=== PATIENT | female | born 1965 | race African-American/Black ===

== ENCOUNTER → 2019-02-11 | Emergency (ER) | payer MEDICAID ==
[~2019-02-11] VITALS: Ht 165.1 cm; Wt 57.2 kg
[~2019-02-11] MED LIST: CEPHALEXIN500 M1 ORAL; NKM
[2019-02-11 14:02] VITALS: BP 122/91
--- NOTE | 2019-02-11 14:53 | Emergency Room Report ---
History of Present Illness General Chief Complaint: Female Urogenital Problems Source: Patient Present Illness HPI 53 year old female presents with dysuria x7 days no aggravating relieving factors severity is mild, constant, no back pain, no fevers no chills, patient was taking an outpatient antibiotic she cannot remember the name of it she states she borrowed it from her sister at [facility], patient presents for evaluation and treatment Allergies: Coded Allergies: No Known Allergies (Unverified , 02/11/19) Patient History Past Medical History: see triage record Last Menstrual Period: menopause Reviewed Nursing Documentation: PMH: Agreed; PSxH: Agreed Nursing Documentation-PMH Past Medical History: No Stated History Review of Systems All Other Systems: negative except mentioned in HPI Physical Exam Vital Signs Date Time Temp Pulse Resp B/P (MAP) Pulse Ox O2 Delivery O2 Flow Rate FiO2 02/11/19 14:02 98.1 16 122/91 96 Room Air 02/11/19 14:02 82 General Appearance: well appearing, no apparent distress Head: normocephalic, atraumatic ENT: hearing grossly normal, normal voice Neck: full range of motion, supple Respiratory: no respiratory distress, speaking full sentences Gastrointestinal: soft, tenderness - Mild suprapubic tenderness Genitourinary: no CVA tenderness Neurologic: alert, normal gait Psychiatric: mood/affect normal Skin: no rash Medical Decision Making Diagnostic Impression: Primary Impression: UTI (urinary tract infection) Qualified Codes: N30.00 - Acute cystitis without hematuria ER Course 53-year-old female presents with dysuria x7 days, will start treatment with antibiotics most likely UTI differential also includes appendicitis diverticulitis Last Vital Signs Date Time Temp Pulse Resp B/P (MAP) Pulse Ox O2 Delivery O2 Flow Rate FiO2 02/11/19 14:02 98.1 82 16 122/91 (101) 96 Room Air Disposition: HOME, SELF-CARE Condition: Stable Scripts Cephalexin* (KEFLEX*) 500 Mg Tablet 500 MG ORAL EVERY 6 HOURS, #28 CAP Prov: Deep Dunn MD 02/11/19 Referrals: [facility] Patient Instructions: Urinary Tract Infection Additional Instructions: The patient was provided with discharge instructions, notified to follow-up with a primary care doctor and or specialist in the next 24-48 hours, and to return to the ED if they have worsening of their symptoms. Please note that this report is being documented using DRAGON technology. This can lead to erroneous entry secondary to incorrect interpretation by the dictating instrument. Deep Dunn MD Feb 11, 2019 14:53
[2019-02-11 15:17] LABS: APPEARANCE,URINE VERY CLOUDY; BILIRUBIN, URINE NEGATIVE (NEGATIVE); COLOR,URINE YELLOW; GLUCOSE, URINE (UA) NEGATIVE (NEGATIVE); KETONES,URINE NEGATIVE (NEGATIVE); LEUKOCYTE ESTERASE ,URINE 3+ (NEGATIVE); NITRITE,URINE POSITIVE (NEGATIVE); PH,URINE 6 (4.5-8.0); PROTEIN,URINE 3+ (NEGATIVE); UROBILINOGEN,URINE 1 MG/DL (0.0-1.0)
== END | disposition home or self-care (01) ==
LOC: EMR 23:25
DX: N30.00 Acute cystitis without hematuria (principal); Z78.0 Asymptomatic menopausal state
CPT/HCPCS: 81003; 87086; Z7502; 99282